=== PATIENT | male | born 1985 | race African-American/Black ===

== ENCOUNTER 2017-04-03 09:45 | Observation (INO) ==
[2017-04-03 15:04] LABS: Basophils % 0.2 % (0.0-0.8); Eosinophils # 0.1 10*3/uL (0.0-0.87); Eosinophils % 0.9 % (0.00-10.9); Hematocrit 43.3 VOL% (42.0-52.0); Hemoglobin 14.7 GM/DL (14.0-18.0); Immature Granulocytes % 0.3 %; Immature Granulocytes Absolute 0.03 #; Lymphocytes # 3.8 10*3/uL (1.4-4.0); Lymphocytes % 34.7 % (21.2-54.2); Mean Corpuscular HGB Conc 33.9 GM/DL (32-36); Mean Corpuscular Hemoglobin 29 PG (27-34); Mean Corpuscular Volume 85.4 FL (87-102); Mean Platelet Volume 10.1 FL (9.6-12.0); Monocytes # 0.8 10*3/uL (0.11-0.8); Monocytes % 6.8 % (1.7-12.7); Neutrophils # 6.3 10*3/uL (1.4-7.4); Neutrophils % 57.1 % (38.7-73.9); Platelet Count 238 T/CUMM (130-400); Red Blood Count 5.07 MC/CUMM (3.8-5.5); Red Cell Distribution Width 12.8 % (9.3-17.3)
[2017-04-03 15:24] LABS: Calcium 9.3 MG/DL (8.5-10.1); Potassium 4.5 MMOL/L (3.5-5.1)
[2017-04-03] MEDS ORDERED: MORPHINE 2 MG/1 ML SYRINGE IV PRN (16:23)
[2017-04-03] MEDS ORDERED: ACETAMINOPHEN 325 MG TABLET PO PRN (16:23)
[2017-04-03] MEDS ORDERED: ONDANSETRON 4 MG/2 ML VIAL IV PRN (16:23)
[2017-04-03] MEDS: DEXTROSE 5% NACL 0.45% 1,000 ML IV SCH ×2 (18:03→23:27)
[2017-04-03] MEDS: CLINDAMYCIN INJ 600 MG in PREMIX 1 EACH IV SCH (18:05)
[2017-04-04] MEDS: CLINDAMYCIN INJ 600 MG in PREMIX 1 EACH IV SCH ×2 (01:17→09:29)
[2017-04-04] MEDS: DEXTROSE 5% NACL 0.45% 1,000 ML IV SCH ×2 (03:33→11:40)
[2017-04-04 08:06] LABS: Apearance,Urine CLEAR (Clear); Bilirubin,Urine Negative (Negative); Blood, Urine Negative (Negative); Glucose,Urine (UA) Negative (Negative); Ketones,Urine Negative (Negative); Nitrite,Urine Negative (Negative); Protein,Urine Negative; RBC,Urine 1 /HPF (0-4); Squamous Epithelial Cell,Urine Occasional /HPF (0-10); Urine Color Straw (Yellow); Urine Specific Gravity 1.008 (1.001-1.035); Urine Urobilinogen < 2.0 EU/DL (0.2-1.0); WBC,Urine 10 /HPF (0-6)
[2017-04-04] MEDS ORDERED: PANTOPRAZOLE 40 MG TABLET PO SCH (09:00)
[2017-04-04] MEDS ORDERED: CLINDAMYCIN INJ 50 ML IV ONE (09:20)
[2017-04-04] MEDS: LACTATED RINGERS 1,000 ML IV SCH ×2 (09:34→10:16)
[2017-04-04] MEDS ORDERED: ONDANSETRON 4 MG/2 ML VIAL ONE (10:18)
[2017-04-04] MEDS ORDERED: HYDROmorphone 2 MG/1 ML VIAL ONE (10:18)
[2017-04-04] MEDS ORDERED: ONDANSETRON 4 MG/2 ML VIAL IV PRN (10:18)
[2017-04-04] MEDS: HYDROmorphone 2 MG/1 ML VIAL IV PRN ×2 (10:20→10:25)
[2017-04-04] MEDS ORDERED: METOCLOPRAMIDE 10 MG/2 ML VIAL ONE (11:39)
[2017-04-04] MEDS ORDERED: SEVOFLURANE 1 UNIT/15 MINUTE INH ONE (11:39)
[2017-04-04] MEDS ORDERED: MIDAZOLAM 2 MG/2 ML VIAL ONE (11:39)
[2017-04-04] MEDS ORDERED: PROPOFOL 200 MG/20 ML VIAL IV ONE (11:39)
[2017-04-04] MEDS ORDERED: KETOROLAC 30 MG/1 ML VIAL ONE (11:39)
[2017-04-04 15:57] VITALS: BP 115/60
== END 2017-04-04 15:57 | disposition home or self-care (01) ==
LOC: N.EDINP 09:45 → N.ED 09:45 → N.3E 16:01
PROVIDERS: ADMIT Surgery; ATTEND Surgery

== ENCOUNTER 2017-04-06 12:17 | Inpatient (IN) ==
[2017-04-06 18:02] LABS: Basophils % 0.3 % (0.0-0.8); Eosinophils # 0.2 10*3/uL (0.0-0.87); Eosinophils % 1.2 % (0.00-10.9); Hematocrit 42.9 VOL% (42.0-52.0); Hemoglobin 14.9 GM/DL (14.0-18.0); Immature Granulocytes % 0.4 %; Immature Granulocytes Absolute 0.06 #; Lymphocytes # 3.3 10*3/uL (1.4-4.0); Lymphocytes % 22.8 % (21.2-54.2); Mean Corpuscular HGB Conc 34.7 GM/DL (32-36); Mean Corpuscular Hemoglobin 29 PG (27-34); Mean Corpuscular Volume 83.5 FL (87-102); Mean Platelet Volume 9.9 FL (9.6-12.0); Monocytes # 1.2 10*3/uL (0.11-0.8); Monocytes % 8.6 % (1.7-12.7); Neutrophils # 9.6 10*3/uL (1.4-7.4); Neutrophils % 66.7 % (38.7-73.9); Platelet Count 247 T/CUMM (130-400); Red Blood Count 5.14 MC/CUMM (3.8-5.5); Red Cell Distribution Width 12.3 % (9.3-17.3); White Blood Count 14.4 T/CUMM (4-12)
[2017-04-06 18:12] LABS: Partial Thromboplastin Time 27.9 SECS (0-40)
[2017-04-06 18:16] LABS: Calcium 9.4 MG/DL (8.5-10.1); Osmolality,Calculated 280.1 MOS/KG (273-304); Potassium 3.7 MMOL/L (3.5-5.1)
[2017-04-06] MEDS ORDERED: MORPHINE 2 MG/1 ML SYRINGE IV STA (18:24)
[2017-04-06] MEDS ORDERED: CLINDAMYCIN INJ 600 MG in PREMIX 1 EACH IV STA (18:28)
[2017-04-06] MEDS ORDERED: CLINDAMYCIN INJ 50 ML IV ONE (18:59)
[2017-04-06] MEDS ORDERED: MORPHINE 2 MG/1 ML SYRINGE ONE (18:59)
[2017-04-06] MEDS ORDERED: ONDANSETRON 4 MG/2 ML VIAL ONE (18:59)
[2017-04-06] MEDS ORDERED: ONDANSETRON 4 MG/2 ML VIAL IV STA (19:01)
[2017-04-06] MEDS ORDERED: ACETAMINOPHEN 325 MG TABLET PO PRN (19:34)
[2017-04-06] MEDS ORDERED: PROMETHAZINE 25 MG/1 ML VIAL IM PRN (19:34)
[2017-04-06] MEDS ORDERED: ONDANSETRON 4 MG/2 ML VIAL IV PRN (19:34)
[2017-04-06] MEDS ORDERED: BISACODYL 5 MG TABLET PO PRN (19:34)
[2017-04-06] MEDS: clonazePAM 0.5 MG TABLET PO SCH (21:58)
[2017-04-06] MEDS: SODIUM CHLORIDE 0.9% 1,000 ML IV SCH (22:04)
[2017-04-07] MEDS: CLINDAMYCIN INJ 600 MG in PREMIX 1 EACH IV SCH ×4 (01:23→19:54)
[2017-04-07] MEDS: MORPHINE 2 MG/1 ML SYRINGE IV PRN ×3 (06:24→21:41)
[2017-04-07] MEDS: SODIUM CHLORIDE 0.9% 1,000 ML IV SCH ×4 (06:26→21:47)
[2017-04-07 08:28] LABS: Basophils % 0.3 % (0.0-0.8); Eosinophils # 0.2 10*3/uL (0.0-0.87); Eosinophils % 2.2 % (0.00-10.9); Hemoglobin 14.1 GM/DL (14.0-18.0); Immature Granulocytes % 0.4 %; Immature Granulocytes Absolute 0.04 #; Lymphocytes # 2.7 10*3/uL (1.4-4.0); Lymphocytes % 24.9 % (21.2-54.2); Mean Corpuscular HGB Conc 33.6 GM/DL (32-36); Mean Corpuscular Hemoglobin 29 PG (27-34); Mean Platelet Volume 10.2 FL (9.6-12.0); Monocytes # 1.1 10*3/uL (0.11-0.8); Monocytes % 10.4 % (1.7-12.7); Neutrophils # 6.8 10*3/uL (1.4-7.4); Neutrophils % 61.8 % (38.7-73.9); Platelet Count 249 T/CUMM (130-400); Red Blood Count 4.94 MC/CUMM (3.8-5.5); Red Cell Distribution Width 12.3 % (9.3-17.3)
[2017-04-07 08:54] LABS: Osmolality,Calculated 280.1 MOS/KG (273-304); Potassium 4.4 MMOL/L (3.5-5.1)
[2017-04-07] MEDS: amLODIPine 10 MG TABLET PO SCH (09:35)
[2017-04-07] MEDS: PANTOPRAZOLE 40 MG TABLET PO SCH (09:35)
[2017-04-07] MEDS: valACYclovir 500 MG TABLET PO SCH (09:35)
[2017-04-07] MEDS: clonazePAM 0.5 MG TABLET PO SCH (20:35)
[2017-04-08] MEDS: CLINDAMYCIN INJ 600 MG in PREMIX 1 EACH IV SCH ×2 (01:02→06:21)
[2017-04-08] MEDS: SODIUM CHLORIDE 0.9% 1,000 ML IV SCH ×4 (02:35→21:20)
[2017-04-08] MEDS: PANTOPRAZOLE 40 MG TABLET PO SCH (08:54)
[2017-04-08] MEDS: valACYclovir 500 MG TABLET PO SCH (08:55)
[2017-04-08] MEDS: amLODIPine 10 MG TABLET PO SCH (08:57)
[2017-04-08] MEDS: MORPHINE 2 MG/1 ML SYRINGE IV PRN ×2 (11:27→21:09)
[2017-04-08] MEDS: clonazePAM 0.5 MG TABLET PO SCH (21:13)
[2017-04-09] MEDS: SODIUM CHLORIDE 0.9% 1,000 ML IV SCH (09:38)
[2017-04-09] MEDS: MORPHINE 2 MG/1 ML SYRINGE IV PRN (09:39)
[2017-04-09] MEDS: amLODIPine 10 MG TABLET PO SCH (09:44)
[2017-04-09] MEDS: PANTOPRAZOLE 40 MG TABLET PO SCH (09:44)
[2017-04-09] MEDS: valACYclovir 500 MG TABLET PO SCH (09:44)
[2017-04-09 11:51] VITALS: BP 145/79
== END 2017-04-09 15:27 | disposition home or self-care (01) | DRG 383 ==
LOC: N.ED 12:17 → N.EDINP 18:30 → N.3E 19:00
PROVIDERS: ADMIT Surgery; ATTEND Surgery